=== PATIENT | male | born 1975 | race Caucasian/White ===

== ENCOUNTER → 2016-12-08 | Outpatient (CLI) | payer BC ==
[2016-12-08 11:07] LABS: INR 0.9; PROTHROMBIN TIME (PATIENT) 10.3 SECONDS (9.5-12.4)
[2016-12-08 11:14] LABS: PARTIAL THROMBOPLASTIN TIME 24.9 SECONDS (25.6-38.1)
[2016-12-08 12:15] LABS: URINE APPEARANCE CLEAR; URINE BILIRUBIN NEG (NEG); URINE BLOOD NEG (NEG); URINE COLOR YELLOW; URINE GLUCOSE NEG (NORM); URINE KETONE NEG (NEG); URINE LEUKOCYTE ESTERASE NEG (NEG); URINE NITRATE NEG (NEG); URINE PROTEIN NEG (NEG); URINE SPECIFIC GRAVITY 1.015 (1.003-1.035); URINE UROBILINOGEN 0.2 MG/DL (NORM)
[2016-12-08 12:19] LABS: MICRO INDICATED? NO
== END | disposition home or self-care (01) ==
LOC: SLAB 10:24
DX: Z01.812 Encounter for preprocedural laboratory examination (principal)
CPT/HCPCS: 36415; 81003; 85610; 85730; 87086